=== PATIENT | female | born 1995 ===

== ENCOUNTER 2016-08-12 14:44 | Emergency (ER) | payer BC ==
[~2016-08-12] VITALS: Ht 152.4 cm; Wt 50.4 kg
[~2016-08-12 14:44] MED LIST: CEPH500C2 PO; SULF800T23 PO
[2016-08-12 14:58] VITALS: TEMP 36.6; Ht 152.4 cm; Wt 50.4 kg
[2016-08-12] MEDS ORDERED: CLC/300 PO (15:20)
[2016-08-12] MEDS ORDERED: SODIUM CHLORIDE 0.9% 1000ML 1,000 ML IV ONE (15:30)
[2016-08-12] MEDS ORDERED: CLINDAMYCIN 900 MG/106 ML D5W IV ONE (15:30)
[2016-08-12 15:37] LABS: BASO % 0.3 %; BASO ABS # 0.03 K/uL (0-0.2); COMPLETE YES; EOS % 0.9 %; IG% 0.1 %; LYMPH % 21.2 %; LYMPH ABS # 2.23 K/uL (1.2-3.4); MEAN CELL VOLUME 90.3 fL (80-100); MEAN CORPUSCULAR HEMOGLOBIN 31.4 pg (25-34); MEAN CORPUSCULAR HGB CONC 34.7 g/dl (32-36); MEAN PLATELET VOLUME 10.6 fL (7.4-10.4); MONO % 6.4 %; NEUT % 71.1 %; PLATELET COUNT 210 K/uL (130-400); RED BLOOD COUNT 4.21 M/uL (4.2-5.4); WHITE BLOOD COUNT 10.53 K/uL (4.8-10.8)
[2016-08-12 15:53] LABS: BUN/CREATININE RATIO 16.6 (10-20); CALCIUM 8.8 mg/dl (8.5-10.1); CREATININE 0.79 mg/dl (0.60-1.20); POTASSIUM 3.9 mmol/L (3.5-5.1)
[2016-08-12] MEDS ORDERED: CLINDAMYCIN IV 900 MG in DEXTROSE 5% ADD-VANTAGE 100ML 100 ML IV SCH (16:00)
[2016-08-12 17:35] VITALS: BP 105/87; PULSE 62; O2SAT 100
--- NOTE | 2016-08-12 19:18 | EMERGENCY ROOM VISIT NOTE ---
History First contact with patient: 15:01 Chief Complaint: INFECTION Stated Complaint: L SIDE FRT LOBE AREA INFECTION Nursing Triage Summary: Patient states "I have an infection on the left side of my head and face that keeps getting worse. It started two days ago and I was started on Clindamycin for it." Patient reports having similar infections before. Patient reports this started as a pimple on the left tenriism; redness and swelling noted to the left side of her face, extending to the left upper and lower eyelids which are edematous and fragile. Patient reports vision to the left eye is blurry. History of Present Illness The patient is a 20 year old female who presents to the Emergency Room with complaints of infection to the left side of her face has been worsening over the past 2 days. The patient was seen at an urgent care clinic yesterday and started on clindamycin. She has been on the antibiotics for about 24 hours. 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 The patient has had similar episodes before, where she states she has a small pimple that increases in size, and causes or worsening pain. The patient does not report a history of MRSA infection in the past. She has not had fever or chills. She rates her current discomfort a 5/10. Review of Systems More than 10 systems were reviewed and otherwise negative with the exception of history of present illness. Past Medical/Surgical History Medical Problems: (1) No Known Active Medical Problems Family History No pertinent family history Social History Smoking Status: Never Smoker Occupation Status: [employer] student Current/Historical Medications Scheduled Clindamycin HCl (Clindamycin HCl), 1 CAP PO TID Allergies Coded Allergies: No Known Allergies (Unverified , 08/12/16) Physical Exam Vital Signs Date Time Temp Pulse Resp B/P Pulse Ox O2 Delivery O2 Flow Rate FiO2 08/12/16 17:35 62 18 105/87 100 08/12/16 16:06 59 18 107/90 100 Room Air 08/12/16 14:58 36.6 70 16 119/77 100 Room Air Pain Rating (0-10): 0 Physical Exam VITALS: Vitals are noted on the nurse's note and reviewed by myself. Vital signs stable. GENERAL: Well-developed, well-nourished, white female who is in moderate discomfort secondary to her stated complaint. HEAD: The patient is with a left-sided facial cellulitis with small abscess. The cellulitis is roughly from the lateral left canthus to the tragus of the left ear joint roughly 2 x 2 centimeter in dimension. Centrally there is a small abscess with overlying scab. EARS: External ear normal. External auditory canals clear, tympanic membranes pearly mcconnell without erythema or effusion bilaterally. EYES: Pupils equal round and reactive to light and accommodation. Conjunctivae without injection, sclerae without icterus. Extraocular movements intact. NOSE: Patent, turbinates without inflammation or discharge. MOUTH: Mucous membranes moist. Tonsils are not enlarged. Pharynx without erythema, blood, or exudate. Uvula midline. Airway patent. NECK: Supple without nuchal rigidity. No lymphadenopathy. No thyromegaly. Cervical spine is nontender. HEART: Regular rate and rhythm without murmurs gallops or rubs. LUNGS: Clear to auscultation bilaterally without wheezes, rales or rhonchi. No retractions or accessory muscle use. Medical Decision & Procedures Laboratory Results 08/12/16 15:26 Red Blood Count 4.21, Mean Corpuscular Volume 90.3, Mean Corpuscular Hemoglobin 31.4, Mean Corpuscular Hemoglobin Concent 34.7, Mean Platelet Volume 10.6, Neutrophils (%) (Auto) 71.1, Lymphocytes (%) (Auto) 21.2, Monocytes (%) (Auto) 6.4, Eosinophils (%) (Auto) 0.9, Basophils (%) (Auto) 0.3, Neutrophils # (Auto) 7.49, Lymphocytes # (Auto) 2.23, Monocytes # (Auto) 0.67, Eosinophils # (Auto) 0.10, Basophils # (Auto) 0.03 08/12/16 15:26 Test 08/12/16 15:26 White Blood Count 10.53 K/uL (4.8-10.8) Red Blood Count 4.21 M/uL (4.2-5.4) Hemoglobin 13.2 g/dL (12.0-16.0) Hematocrit 38.0 % (37-47) Mean Corpuscular Volume 90.3 fL (80-100) Mean Corpuscular Hemoglobin 31.4 pg (25-34) Mean Corpuscular Hemoglobin Concent 34.7 g/dl (32-36) Platelet Count 210 K/uL (130-400) Mean Platelet Volume 10.6 fL (7.4-10.4) Neutrophils (%) (Auto) 71.1 % Lymphocytes (%) (Auto) 21.2 % Monocytes (%) (Auto) 6.4 % Eosinophils (%) (Auto) 0.9 % Basophils (%) (Auto) 0.3 % Neutrophils # (Auto) 7.49 K/uL (1.4-6.5) Lymphocytes # (Auto) 2.23 K/uL (1.2-3.4) Monocytes # (Auto) 0.67 K/uL (0.11-0.59) Eosinophils # (Auto) 0.10 K/uL (0-0.5) Basophils # (Auto) 0.03 K/uL (0-0.2) RDW Standard Deviation 41.1 fL (36.4-46.3) RDW Coefficient of Variation 12.5 % (11.5-14.5) Immature Granulocyte % (Auto) 0.1 % Immature Granulocyte # (Auto) 0.01 K/uL (0.00-0.02) Anion Gap 5.0 mmol/L (3-11) Est Creatinine Clear Calc Drug Dose 81.6 ml/min Estimated GFR () 124.9 Estimated GFR (Non- 107.8 BUN/Creatinine Ratio 16.6 (10-20) Calcium Level 8.8 mg/dl (8.5-10.1) Total Bilirubin 0.2 mg/dl (0.2-1) Aspartate Amino Transf (AST/SGOT) 23 U/L (15-37) Alanine Aminotransferase (ALT/SGPT) 24 U/L (12-78) Alkaline Phosphatase 66 U/L (45-117) Total Protein 7.9 gm/dl (6.4-8.2) Albumin 4.0 gm/dl (3.4-5.0) Globulin 3.9 gm/dl (2.5-4.0) Albumin/Globulin Ratio 1.0 (0.9-2) Medications Administered Medications (Trade) Dose Ordered Sig/Tammy Route Start Time Stop Time Status Last Admin Dose Admin Sodium Chloride 1,000 ml @ 999 mls/hr Q1H1M ONCE IV 08/12/16 15:30 08/12/16 16:30 DC 4/1/17 15:43 999 MLS/HR Clindamycin Phosphate/Dextrose (Cleocin Iv/ Dextrose Add-[place] 100ML) 106 ml @ 106 mls/hr 1600 IV 08/12/16 16:00 08/12/16 16:59 DC 08/12/16 16:37 106 MLS/HR ED Course Physical exam and history were performed. Nursing notes and EMR were reviewed. Patient appears to have a left-sided facial abscess with cellulitis. The abscess is with scab, and utilizing an 18-gauge needle I was able to de-roof the abscess. This allowed for purulent drainage, which was cultured and sent to the lab. IV access was then established and labs were obtained. The patient was hydrated with normal saline and given 900 mg IV clindamycin. The patient blood work does not show significant elevated white blood cell count , gross anemia, bandemia, or significant electrolyte imbalance. Overall the patient appears stable for discharge home at this time. She does not appear to need a CT scan, and she does not appear septic. Clinically I suspect her culture will grow out staph, and I will keep her on clindamycin pending results of the culture. I recommended the patient return to the ER in about 48 hours for a recheck of her condition. She was certainly invited back sooner if she has any deterioration of her symptoms. The patient was pleased with this plan of voice understanding. She was given a note for several days off work. She rated her discomfort a 6/10 at the time of departure. The chart was completed utilizing [employer] Speech Voice Recognition Software. Grammatical errors, random word insertions, pronoun errors, and incomplete sentences are an occasional consequence of this system due to software limitations, ambient noise, and hardware issues. Any formal questions or concerns about the content, text, or information contained within the body of this dictation should be directly addressed to the provider for clarification. . Medical Decision Differential diagnosis: Etiologies such as cellulitis, abscess, MRSA infection, DVT, necrotizing fasciitis, dermatitis, drug eruption, as well as others were entertained.. Impression Primary Impression: Cellulitis and abscess of face Departure Information Dispostion Home / Self-Care Condition GOOD Forms HOME CARE DOCUMENTATION FORM, Work Instructions, Additional Instructions: Patient was seen and evaluated today in the emergency department fo medical care. Return to work on 08/15/2016. Please excuse. IMPORTANT VISIT INFORMATION Patient Instructions My [facility] Additional Instructions You were seen and evaluated today on an emergency basis only. This is not a substitute for, or an effort to provide, complete comprehensive medical care. It is not possible to recognize and treat all injuries or illnesses in a single emergency department visit. For this reason it is recommended that you followup with your primary care physician or back in the emergency department in about 48 hours for recheck of your condition. For baseline pain relief you may alternate ibuprofen and acetaminophen every 4 hours for pain control. Take 600 mg ibuprofen (Advil) and then 4 hours later take 1000 mg acetaminophen (Tylenol). Do not take more than 3000 mg acetaminophen in a single day. Continue clindamycin as previously prescribed. You are welcome to return to the emergency department anytime with new, worsening, or concerning symptoms. Work Instructions Additional Work Instructions: Patient was seen and evaluated today in the emergency department for medical care. Return to work on 08/15/2016. Please excuse.
--- NOTE | 2016-08-15 12:04 | Pharmacy Progress Note ---
ED Pharmacist Culture FollowUp Date of Service: Aug 15, 2016. Patient was instructed to continue her prescription for clindamycin, which should cover the Staph aureus (MRSA) growing from the patient's drain-surface/ face culture.
== END 2016-08-12 17:35 | disposition home or self-care (01) ==
LOC: C.EDB 14:47 → C.EDC 17:35
DX: L03.211 Cellulitis of face (principal)

== ENCOUNTER → 2017-02-08 | Outpatient (CLI) | payer BC ==
[~2017-02-08] MED LIST changes: -CEPH500C2 PO; +CLC/300 PO; -SULF800T23 PO
== END | disposition home or self-care (01) ==
LOC: C.PAPS 14:46
PROVIDERS: ATTEND Obstetrics & Gynecology
DX: R87.612 Low grade squamous intraepithelial lesion on cytologic smear of cervix (LGSIL) (principal)